=== PATIENT | male | born 1955 | race Hispanic/Latino ===

== ENCOUNTER 2024-03-13 07:51 | Emergency (ER) | payer MEDICARE, SELFPAY ==
[2024-03-13 07:56] VITALS: BP 157/97
--- NOTE | 2024-03-13 08:41 | ED.GENMED ---
History of Present Illness
General
Chief Complaint: Headache
Time Seen by Provider: 03/13/24 08:31
History of Present Illness
History of Present Illness:
69-year-old male w/ hx of RA (not on immunomodulators) presents to the emergency department for evaluation of intractable headache for the past 3 days. Has a history of mild migraine headaches but not as severe as this. Gradually worsening
throughout the past 3 days. Associated with persistent vomiting. Does note a small amount of diarrhea yesterday as well. Denies any blurry vision or neck pain at this time. No recent fevers or chills. Has not taken any medications for the
headache.
Review of Systems
Review of Systems
Allergies reviewed?: Yes
All Other Systems: ROS reviewed and negative except as documented in HPI and ROS
Phy Exam
Physical Exam
Physical Exam:
GEN: Well appearing, NAD, WDWN
HEENT: Oral mucosa moist, no scleral icterus, no nasal congestion
Cardiac: Regular rate
Lung: No respiratory distress, no tachypnea
MSK: Metacarpal phalangeal joint deformities consistent with history of RA
Skin: Good color, no pallor or jaundice, no rashes
Neuro: AO x3; CN II-XII grossly intact. BUE strength 5/5 in all magallanes, sensation intact and symmetric. BLE strength 5/5 in all magallanes, sensation intact and symmetric
Psych: Calm, cooperative
Course
Orders/Labs/Results
Orders:
Orders
03/13/24 08:41
CT Head W/o Iv Contrast Urgent
Comment:
Reason For Exam: intractable headache
0.9% Sodium Chloride 1000 ml [Nss] 1,000 ml IV BOLUS
Ondansetron Injectable [Zofran] 4 mg IV NOW STA
03/13/24 08:56
Complete Blood Count/With Diff Urgent
Comprehensive Metabolic Panel Urgent
03/13/24 09:32
Ketorolac [Toradol] 15 mg IV NOW STA
Magnesium Sulfate 2 Gram/50 ml [Magnesium Sulfate] 2 gram in 50 ml IV NOW
Metoclopramide [Reglan] 10 mg IV NOW STA
Abnormal Lab Results
03/13/24
08:56
Absolute Neuts (auto) 8.2 H 10^3/uL
(1.4-6.5)
Absolute Lymphs (auto) 0.8 L 10^3/uL
(1.2-3.4)
Neutrophils % 85.7 H %
(42.2-75.2)
Lymphocytes % 7.9 L %
(20.5-51.1)
Sodium 132 L mmol/L
(135-145)
Chloride 95 L mmol/L
(98-107)
BUN 24 H mg/dl
(9-20)
Glucose 142 H mg/dl
(70-99)
Alkaline Phosphatase 127 H U/L
(38-126)
03/13/24 08:56
03/13/24 08:56
Vital Signs
Initial and Last Documented VS:
Initial Vital Signs
Temp Pulse Resp BP Pulse Ox
98.2 F 97 16 157/97 98
03/13/24 07:56 03/13/24 07:56 03/13/24 07:56 03/13/24 07:56 03/13/24 07:56
Last Documented Vital Signs
Temp Pulse Resp BP Pulse Ox
98.2 F 97 16 140/79 98
03/13/24 07:56 03/13/24 07:56 03/13/24 07:56 03/13/24 10:41 03/13/24 07:56
MDM/Problems Addressed
MDM/Problems Addressed:
Patient has no neurologic deficits at this time, CT of the head obtained due to the persistence of the headache and this was negative. Labs are reassuring, headache resolved with treatment in the emergency department. Discharged in stable condition
*Critical Care Note
Total Time (30-74mins, 75-104mins- exclusive of procedures): Not Applicable
ED Attending Note
-
Portions of this chart may have been created with voice recognition software.� Occasional wrong word or��sound alike� substitutions may have occurred due to the inherent limitations of voice recognition software.
Discharge Plan
Departure
Patient Disposition: Home (Routine Discharge)
Date of Disposition: 03/13/24
Time of Disposition: 10:28
Patient with high blood pressure during this ER visit?: No
Discharge Problem:
Acute intractable headache
Instructions: Headache, Adult (DC)
Referrals:
George Hood MD [Family Provider] -
Interventions
Interventions:
*Risk Screen - Suicide Last Done: 03/13/24 07:56
*General Assessment Last Done: 03/13/24 09:08
*Neglect/Abuse Screening Last Done: 03/13/24 07:56
ED- Fall Risk Assessment Last Done: 03/13/24 09:08
*ED COVID-19 Vaccine History Last Done: 03/13/24 09:08
*Nursing Disposition Last Done: 03/13/24 10:42
ED- Neurological Assessment Last Done: 03/13/24 09:08
Discharge Date and Time
Discharge Date/Time: 03/13/24 10:43
Print Language: WOLOF
[2024-03-13] MEDS: ZOFRAN 4 MG IV (08:54)
[2024-03-13] MEDS: NSS 1000 IV (08:55)
[2024-03-13 09:14] LABS: % Basophils 0.4 % (0-2); % Immature Granulocytes 0.3 % (0-0.5); % Lymphocytes 7.9 % (20.5-51.1); % Monocytes 5.7 % (1.7-9.3); % Neutrophils 85.7 % (42.2-75.2); Absolute Lymphocytes 0.8 10^3/uL (1.2-3.4); Absolute Monocytes 0.5 10^3/uL (0.1-0.6); Absolute Neutrophils 8.2 10^3/uL (1.4-6.5); Hematocrit 48.5 % (39.0-52.0); Hemoglobin 16.7 g/dL (13.0-18.0); Mean Corp Hgb Conc. 34.4 g/dL (33.0-37.0); Mean Corpuscular Hgb 28.5 pg (27.0-31.0); Mean Corpuscular Volume 82.8 fL (80.0-94.0); Mean Platelet Volume 10.2 fL (7.4-10.4); Nucleated Red Blood Cells % 0 % (-); Platelet Count 195 10^3/uL (130-400); Red Blood Cell Count 5.86 10^6/uL (4.70-6.10); Red Cell Dist. Width 13.2 % (11.5-14.5); White Blood Cell Count 9.6 10^3/uL (4.8-10.8)
[2024-03-13 09:26] LABS: ALT (SGPT) 28 U/L (0-50); AST (SGOT) 28 U/L (17-59); Albumin 4.8 g/dl (3.5-5.0); Alkaline Phosphatase 127 U/L (38-126); Blood Urea Nitrogen 24 mg/dl (9-20); Calcium 9.4 mg/dl (8.4-10.2); Carbon Dioxide 26 mmol/L (22-30); Chloride 95 mmol/L (98-107); Glucose 142 mg/dl (70-99); Potassium 4.2 mmol/L (3.5-5.1); Sodium 132 mmol/L (135-145); Total Protein 7.8 g/dl (6.3-8.2); eGFR > 60.00
[2024-03-13] MEDS: MAGNESIUM SULFATE 50 IV (09:45)
[2024-03-13] MEDS: REGLAN 10 MG IV (09:46)
[2024-03-13] MEDS: TORADOL 15 MG IV (09:46)
[2024-03-13 10:41] VITALS: BP 140/79
== END 2024-03-13 10:43 | disposition home or self-care (01) ==
LOC: EMR 07:51
PROVIDERS: Physician Assistant; EMERGENCY PHYSICIAN Emergency Medicine; FAMILY PHYSICIAN Surgery
DX: R51.9 Headache, unspecified (principal)
CPT/HCPCS: 99284; 96365; 96375; 70450; 80053; 85025; 96374